=== PATIENT | male | born 1960 | race Caucasian/White ===

== ENCOUNTER 2017-02-18 09:53 | Emergency (ER) | payer MEDICARE ==
[~2017-02-18] VITALS: Ht 170.2 cm; Wt 110.0 kg
[2017-02-18 09:55] VITALS: BP 175/104; PULSE 80; RESP 16; TEMP 98.3; O2SAT 98
--- NOTE | 2017-02-18 10:06 | PD ---
HPI . wants to be checked out Chief Complaint: Respiratory Distress Time Seen by Provider: 10:06 Travel History International Travel<30 days: No Contact w/Intl Traveler<30days: No Traveled to known affect area: No History of Present Illness HPI 56-year-old male here with complaints of intermittent shortness of breath. Patient tells me that he occasionally will encounter certain smells that cause him to have shortness of breath. He denies any shortness of breath today. He tells me that he suffers from some underlying psychiatric issues and just wants a physical exam. He has no complaints of cold or flulike symptoms. He denies any chest pain, nausea, vomiting, diaphoresis or shortness of breath. He has no other complaints. He recently moved to this area and wants to know where he can go for psychiatric assistance. He is not suicidal or homicidal. PFSH Past Medical History Anxiety: Yes ?: Not Social History Alcohol Use: Yes Tobacco Use: Yes Substance Use: Yes Allergies-Medications (Allergen,Severity, Reaction): Coded Allergies: No Known Allergies (Unverified , 02/18/17) Review of Systems General / Constitutional: No: Fever Eyes: No: Visual changes HENT: No: Headaches Cardiovascular: No: Chest Pain or Discomfort Respiratory: No: Shortness of Breath Gastrointestinal: No: Abdominal Pain Genitourinary: No: Dysuria Musculoskeletal: No: Pain Skin: No Rash Neurologic: No: Weakness Psychiatric: Positive: Anxiety, No: Depression Endocrine: No: Polydipsia Hematologic/Lymphatic: No: Easy Bruising Physical Exam Narrative GENERAL: AAO x 3, no acute distress, Well-nourished, well-developed patient. SKIN: Warm and dry. No visible rashes or bruising. HEAD: Normocephalic and atraumatic. EYES: No scleral icterus. No injection or drainage. EOM intact, PERRLA ENT: No nasal drainage noted. Mucous membranes pink. Airway patent. NECK: Supple, trachea midline. No JVD. CARDIOVASCULAR: Regular rate and rhythm without murmurs, gallops, or rubs. RESPIRATORY: Breath sounds equal bilaterally. No accessory muscle use. No rhonchi or rales. GASTROINTESTINAL: Abdomen soft, non-tender, nondistended. EXTREMITIES: No cyanosis or edema. BACK: Nontender without obvious deformity. No CVA tenderness. PSYCH: AAO x 3, normal affect. Data Data Last Documented VS Vital Signs Date Time Temp Pulse Resp B/P Pulse Ox O2 Delivery O2 Flow Rate FiO2 02/18/17 09:55 98.3 80 16 175/104 98 MDM Medical Decision Making Medical Screen Exam Complete: Yes Emergency Medical Condition: Yes Medical Record Reviewed: Yes Differential Diagnosis Allergic rhinitis, anxiety, wellness check Narrative Course 56-year-old male here with complaints of intermittent shortness of breath. Patient tells me that he occasionally will encounter certain smells that cause him to have shortness of breath. He denies any shortness of breath today. He tells me that he suffers from some underlying psychiatric issues and just wants a physical exam. He has no complaints of cold or flulike symptoms. He denies any chest pain, nausea, vomiting, diaphoresis or shortness of breath. He has no other complaints. He recently moved to this area and wants to know where he can go for psychiatric assistance. He is not suicidal or homicidal. Patient seen and examined. Physical examination is unremarkable. He appears to have some intermittent allergic rhinitis. Upon further discussion he will be reaching out to his PCP for allergy testing. I discussed Sachin Vogt with him. I provided him with information. Advised him to return to the emergency department if her symptoms return or worsen. Diagnosis Primary Impression: Allergic rhinitis Qualified Code: J30.9 - Allergic rhinitis, unspecified allergic rhinitis trigger, unspecified rhinitis seasonality Additional Impression: Anxiety Referrals: [facility] Instructions: General Instructions Disposition: 01 DISCHARGE HOME Condition: Stable Milagros Pool February 18, 2017 10:06
== END 2017-02-18 10:38 | disposition home or self-care (01) ==
LOC: NEPK 09:53
DX: J30.9 Allergic rhinitis, unspecified (principal); Z72.0 Tobacco use
CPT/HCPCS: 99283